=== PATIENT | male | born 1965 | race Caucasian/White ===

== ENCOUNTER → 2016-06-14 | Outpatient (CLI) | payer OTHER ==
[~2016-06-14] MED LIST: ADVAIR HFA 115-28 GM INH; ASPIRIN 325MG325 MG NG; HYDRALAZINE HCL50 MG PO; ISOSORBIDE MONO60 MG PO; LIPITOR TAB 2020 MG PO; OMEPRAZOLE40 MG PO; SINGULAIR10 MG PO; TOPROL XL 50 MG50 MG PO; TUDORZA PRESS400 MCG INH; VENTOLIN/PROVE0.5 ML INH
== END ==
LOC: RAD 09:07
DX: M25.531 Pain in right wrist (principal); M25.532 Pain in left wrist
CPT/HCPCS: 73110